=== PATIENT | male | born 1995 | race Caucasian/White ===

== ENCOUNTER 2019-09-11 22:37 | Emergency (ER) | payer BC ==
[2019-09-11 22:42] VITALS: TEMP 98.5
[2019-09-11] MEDS ORDERED: LORazepam 1 MG TAB PO STA (23:03)
--- NOTE | 2019-09-11 23:20 | ED ---
General Adult HPI - General Chief complaint: Anxiety Stated complaint: Anxiety Time Seen by Provider: 09/11/19 22:41 Source: patient, RN notes reviewed Mode of arrival: ambulatory Limitations: no limitations - History of Present Illness Initial comments: 24-year-old male presents to the emergency department for a chief complaint of anxiety. Patient states that this last November he had increased anxiety when he started a new job. States actually adequate that job and was started on a couple different anxiety medications for about one month. States that he felt better however a couple weeks ago the anxiety surgeon return. He states he started a new [employer] class this Monday but does not feel it is related. States he has had increased anxiety and had a panic attack before coming. Patient does have Valium at home but did not take it. Mother states they're here to start from "square one" With this anxiety. Patient denies any thoughts of harming himself or anyone else. States his anxiety is better at this time he still does feel somewhat anxious.Patient has no other complaints at this time including shortness of breath, chest pain, abdominal pain, nausea or vomiting, headache, or visual changes. - Related Data Allergies Allergy/AdvReac Type Severity Reaction Status Date / Time Penicillins Allergy Unknown Verified 09/11/19 22:41 Review of Systems ROS Statement: Those systems with pertinent positive or pertinent negative responses have been documented in the HPI. ROS Other: All systems not noted in ROS Statement are negative. Past Medical History Past Medical History: No Reported History History of Any Multi-Drug Resistant Organisms: None Reported Past Surgical History: No Surgical Hx Reported Past Psychological History: Anxiety Smoking Status: Never smoker Past Alcohol Use History: None Reported Past Drug Use History: None Reported General Exam Limitations: no limitations General appearance: alert, in no apparent distress, anxious (Fidgeting) Head exam: Present: atraumatic, normocephalic, normal inspection Eye exam: Present: normal appearance, PERRL, EOMI. Absent: scleral icterus, conjunctival injection, periorbital swelling ENT exam: Present: normal exam, mucous membranes moist Neck exam: Present: normal inspection, full ROM. Absent: tenderness, meningismus, lymphadenopathy Respiratory exam: Present: normal lung sounds bilaterally. Absent: respiratory distress, wheezes, rales, rhonchi, stridor Cardiovascular Exam: Present: regular rate, normal rhythm, normal heart sounds. Absent: systolic murmur, diastolic murmur, rubs, gallop, clicks Neurological exam: Present: alert, oriented X3, CN II-XII intact Psychiatric exam: Present: anxious (mildly anxious). Absent: homicidal ideation, suicidal ideation Course Vital Signs 09/11/19 22:39 Temperature 98.5 F Pulse Rate 99 Respiratory 16 Rate Blood Pressure 168/100 O2 Sat by Pulse 96 Oximetry Medical Decision Making - Medical Decision Making Patient was given Ativan here in the emergency department which did help somewhat. Patient is noted to have Valium at home that he has not been taking. Discussed that if he sits have another panic attack he can take a Valium to help. Discussed not driving while taking this. Patient denies any thoughts of harming himself or anyone else. Patient was given mental health follow-up including mobile crisis number. At this and he will follow-up with his primary care provider as well as situs to manage his anxiety in the past. He will return if he has any worsening symptoms. Disposition Clinical Impression: Acute anxiety Disposition: HOME SELF-CARE Condition: Good Instructions (If sedation given, give patient instructions): Generalized Anxiety Disorder (ED) Additional Instructions: Please follow up with your primary care provider tomorrow. Follow-up with referral list given as well. You may take a Valium if you start to feel another panic attack coming on. Otherwise return to the emergency department for any worsening symptoms. Is patient prescribed a controlled substance at d/c from ED?: No Referrals: Maia Peters MD [Primary Care Provider] - 1-2 days Time of Disposition: 23:21
[2019-09-12 00:09] VITALS: BP 148/100; PULSE 111; RESP 20
== END 2019-09-12 00:10 | disposition home or self-care (01) ==
LOC: EC 22:37
DX: F41.9 Anxiety disorder, unspecified (principal); Z88.0 Allergy status to penicillin
CPT/HCPCS: 99283

== ENCOUNTER 2025-02-13 06:27 | Emergency (ER) | payer BC, OTHER ==
--- NOTE | 2025-02-13 06:49 | ED ---
Abdominal Pain HPI - General Chief Complaint: Abdominal Pain Stated Complaint: abd pain Time Seen by Provider: 02/13/25 06:36 Source: patient, RN notes reviewed Mode of arrival: ambulatory Limitations: no limitations - History of Present Illness Initial Comments: This is a 29-year-old male with no reported medical conditions presents emergency department for complaints of abdominal pain associated nausea and diarrhea over the past 8 days. Patient states that he has had multiple episodes of nonbloody nonmucous diarrhea approximately 10 episodes per day with associated mid abdominal and epigastric pain in his abdomen that is nonradiating. Denies associated urinary complaints, vomiting, fevers, chills. He denies recent travel, trying new foods, livestock exposure, fecal oral contamination, recent antibiotics. Denies previous surgical abdominal history. Denies precipitating modifying factors. Patient states he was evaluated by his PCP few days ago and was instructed to report to the emergency department if symptoms persist or worsen. - Related Data Previous Rx's Medication Instructions Recorded Azithromycin [Zithromax] 500 mg PO DAILY #5 tab 02/13/25 Ondansetron Odt [Zofran Odt] 4 mg PO Q8HR PRN #10 tab 02/13/25 Allergies Allergy/AdvReac Type Severity Reaction Status Date / Time Penicillins Allergy Rash/Hives Verified 02/13/25 06:29 Review of Systems ROS Statement: Those systems with pertinent positive or pertinent negative responses have been documented in the HPI. ROS Other: All systems not noted in ROS Statement are negative. Past Medical History Past Medical History: No Reported History History of Any Multi-Drug Resistant Organisms: None Reported Past Surgical History: No Surgical Hx Reported Past Psychological History: Anxiety Past Alcohol Use History: None Reported Past Drug Use History: None Reported General Exam Limitations: no limitations General appearance: alert, in no apparent distress ENT exam: Present: normal exam, mucous membranes moist Respiratory exam: Present: normal lung sounds bilaterally. Absent: respiratory distress, wheezes, rales, rhonchi, stridor Cardiovascular Exam: Present: regular rate, normal rhythm, normal heart sounds. Absent: systolic murmur, diastolic murmur, rubs, gallop, clicks GI/Abdominal exam: Present: soft, tenderness (mid abdomen, epigastric), normal bowel sounds. Absent: distended, guarding, rebound, rigid Extremities exam: Present: normal inspection, full ROM, normal capillary refill. Absent: tenderness, pedal edema, joint swelling, calf tenderness Back exam: Present: normal inspection. Absent: CVA tenderness (R), CVA tenderness (L) Course Vital Signs 02/13/25 02/13/25 02/13/25 06:30 07:48 08:15 Temperature 98.1 F Pulse Rate 73 92 Respiratory 18 15 17 Rate Blood Pressure 134/85 131/78 O2 Sat by Pulse 97 98 Oximetry Medical Decision Making - Medical Decision Making Was pt. sent in by a medical professional or institution (, PA, SENIOR DOT NET DEVELOPER, urgent care, hospital, or [facility]...) When possible be specific @ -No Did you speak to anyone other than the patient for history (EMS, parent, family, police, friend...)? What history was obtained from this source @ -No Did you review nursing and triage notes (agree or disagree)? Why? @ -I reviewed and agree with nursing and triage notes Were old charts reviewed (outside hosp., previous admission, EMS record, old EKG, old radiological studies, urgent care reports/EKG's, [facility] records)? Report findings @ -No old charts were reviewed Differential Diagnosis (chest pain, altered mental status, abdominal pain women, abdominal pain men, vaginal bleeding, weakness, fever, dyspnea, syncope, headache, dizziness, GI bleed, back pain, seizure, CVA, palpatations, mental health, musculoskeletal)? @ -Differential Abdominal Pain Men: Appendicitis, cholecystitis, diverticulosis, ischemic bowel, pancreatitis, hepatitis, UTI, gastroenteritis, AAA, incarcerated hernia, bowel obstruction, constipation, inflammatory bowel, hepatitis, peptic ulcer disease, splenic infarction, perforated viscus, testicular torsion, this is not meant to be an all-inclusive list EKG interpreted by me (3pts min.). @ -none X-rays interpreted by me (1pt min.). @ -None done CT interpreted by me (1pt min.). @ -CT of the abdomen pelvis with IV contrast reveals prominence of the cecum and proximal ascending colon which may have some mild laboratory changes, appendix normal visualized, mild wall thickening of the distal sigmoid colon gallbladder reveals normal with no pericholecystic fluid inflammatory changes or obvious wall thickening U/S interpreted by me (1pt. min.). @ -Ultrasound of the gallbladder reveals a thickened gallbladder wall with no evidence of pericholecystic fluid or cholelithiasis evident, mild hepatomegaly (correlate for acute cholecystitis) What testing was considered but not performed or refused? (CT, X-rays, U/S, labs)? Why? @ -None What meds were considered but not given or refused? Why? @ -None Did you discuss the management of the patient with other professionals (professionals i.e. , PA, SENIOR DOT NET DEVELOPER, lab, RT, psych nurse, social worker masters, physical chemistry professor, teacher, traffic division commanding officer, spring encaser)? Give summary @ -No Was smoking cessation discussed for >3mins.? @ -No Was critical care preformed (if so, how long)? @ -No Were there social determinants of health that impacted care today? How? (Homelessness, low income, unemployed, alcoholism, drug addiction, transportation, low edu. Level, literacy, decrease access to med. care, custodial, rehab)? @ -No Was there de-escalation of care discussed even if they declined (Discuss DNR or withdrawal of care, Hospice)? DNR status @ -No What co-morbidities impacted this encounter? (DM, HTN, Smoking, COPD, CAD, Cancer, CVA, ARF, Chemo, Hep., AIDS, mental health diagnosis, sleep apnea, morbid obesity)? @ -None Was patient admitted / discharged? Hospital course, mention meds given and route, prescriptions, significant lab abnormalities, going to OR and other pertinent info. @ -Discharge. 29-year-old male presents emergency department with diarrhea and abdominal pain over the past days. Pain is mildly reproducible on exam the epig astric abdomen to deep palpation, no signs of rebound tenderness or rigidity. Negative Briseno sign. Patient was provided with Zofran, fluids, Toradol. Laboratory testing is unremarkable. Ultrasound imaging reveals 9 gallbladder wall thickening with no evidence of cholelithiasis or pericholecystic fluid. EGD abdomen is ordered at this time which reveals a inflammatory changes of the cecum proximal ascending colon. Patient will be treated with azithromycin for traveler's diarrhea and Zofran for nausea. Recommend following clear liquid diet over 24 hours and afterward slowly reducing foods. Recommend follow-up with primary care provider in 24 to 48 hours. Return parameters discussed. Case discussed with Dr. Nation Undiagnosed new problem with uncertain prognosis? @ -No Drug Therapy requiring intensive monitoring for toxicity (Heparin, Nitro, Insulin, Cardizem)? @ -No Were any procedures done? @ -No Diagnosis/symptom? @ -Colitis Acute, or Chronic, or Acute on Chronic? @ -Acute Uncomplicated (without systemic symptoms) or Complicated (systemic symptoms)? @ -Uncomplicated Side effects of treatment? @ -No Exacerbation, Progression, or Severe Exacerbation? @ -No Poses a threat to life or bodily function? How? (Chest pain, [place], [place], pneumonia, PE, COPD, DKA, ARF, appy, cholecystitis, CVA, Diverticulitis, Homicidal, Suicidal, threat to staff... and all critical care pts) @ -No - Lab Data Result diagrams: 02/13/25 06:50 02/13/25 06:50 Lab Results 02/13/25 02/13/25 02/13/25 Range/Units 06:50 06:50 06:50 WBC 10.86 H (4.50-10.00) 10*3/uL RBC 6.70 H (4.40-5.60) 10*6/uL Hgb 17.5 H (13.0-17.0) g/dL Hct 52.8 H (39.6-50.0) % MCV 78.8 L (80.0-97.0) fL MCH 26.1 L (27.0-32.0) pg MCHC 33.1 (32.0-37.0) g/dL Plt Count 365 (140-440) 10*3/uL MPV 9.5 (9.5-12.2) fL Immature Gran % (Auto) 0.4 % Neutrophils % 80.0 % Lymphocytes % 11.1 % Monocytes % 7.8 % Eosinophils % 0.2 % Basophils % 0.5 % Immature Gran # 0.04 (0.00-0.04) 10*3/uL Neutrophils # 8.69 H (1.80-7.70) 10*3/uL Lymphocytes # 1.21 (0.90-5.00) 10*3/uL Monocytes # 0.85 (0.20-1.00) 10*3/uL Eosinophils # 0.02 L (0.04-0.35) 10*3/uL Basophils # 0.05 (0.00-0.10) 10*3/uL Sodium 140 (137-145) mmol/L Potassium 4.2 (3.5-5.1) mmol/L Chloride 101 (98-107) mmol/L Carbon Dioxide 27 (22-30) mmol/L Anion Gap 12 mmol/L BUN 12 (9-20) mg/dL Creatinine 0.97 (0.66-1.25) mg/dL Est GFR (CKD-EPI)AfAm >90 (>60 ml/min/1.73 sqM) Est GFR (CKD-EPI)NonAf >90 (>60 ml/min/1.73 sqM) Glucose 109 H (74-99) mg/dL Plasma Lactic Acid Rudi 0.9 (0.7-2.0) mmol/L Calcium 9.8 (8.4-10.2) mg/dL Total Bilirubin 1.3 (0.2-1.3) mg/dL AST 33 (17-59) U/L ALT 48 (4-49) U/L Alkaline Phosphatase 82 (38-126) U/L Total Protein 8.1 (6.3-8.2) g/dL Albumin 5.0 (3.5-5.0) g/dL Amylase 55 (30-110) U/L Lipase 43 (23-300) U/L Disposition Clinical Impression: Colitis Disposition: HOME SELF-CARE Condition: Stable Instructions (If sedation given, give patient instructions): Colitis (ED) Additional Instructions: Please return to the Emergency Department if symptoms worsen or any other concerns. Recommend that you follow clear liquid diet over the next 24 hours and after slowly reducing foods such as bananas, rice, urea, applesauce, toast. Take Zofran as needed and complete full course antibiotics as prescribed. Recommend follow-up with your primary care provider in the next 24 to 48 hours. Prescriptions: Azithromycin [Zithromax] 500 mg PO DAILY #5 tab Ondansetron Odt [Zofran Odt] 4 mg PO Q8HR PRN #10 tab PRN Reason: Nausea Is patient prescribed a controlled substance at d/c from ED?: No Referrals: None,Stated [REFERRING] - 1-2 days Time of Disposition: 08:17
[2025-02-13] MEDS: KETOROLAC 15 MG/ML 1 ML VIAL IVP STA (06:55)
[2025-02-13] MEDS: SODIUM CHLORIDE 0.9% 1,000 ML IV SCH (06:55)
[2025-02-13] MEDS: ONDANSETRON 4 MG/2 ML VIAL IVP STA (06:55)
[2025-02-13 07:14] LABS: Basophils # (A) 0.05 10*3/uL (0.00-0.10); Basophils % (A) 0.5 %; Eosinophils # (A) 0.02 10*3/uL (0.04-0.35); Eosinophils % (A) 0.2 %; HCT 52.8 % (39.6-50.0); HGB 17.5 g/dL (13.0-17.0); Lymphocytes # (A) 1.21 10*3/uL (0.90-5.00); Lymphocytes % (A) 11.1 %; MCH 26.1 pg (27.0-32.0); MCHC 33.1 g/dL (32.0-37.0); MCV 78.8 fL (80.0-97.0); Mean Platelet Volume 9.5 fL (9.5-12.2); Monocytes # (A) 0.85 10*3/uL (0.20-1.00); Monocytes % (A) 7.8 %; Neutrophils # (A) 8.69 10*3/uL (1.80-7.70); Platelet Count 365 10*3/uL (140-440); RDW 13.3 % (11.5-14.5); WBC 10.86 10*3/uL (4.50-10.00)
--- NOTE | 2025-02-13 07:27 | US ---
EXAMINATION TYPE: US gallbladder DATE OF EXAM: 02/13/2025 COMPARISON: NONE CLINICAL INDICATION: Male, 29 years old with history of epigastric ab pain, diarrhea X8 days; Epigast tae pain with nausea, vomiting, and diarrhea x 8 days. Patient denies any other signs, symptoms, or r elevant history TECHNIQUE: Grayscale and color Doppler imaging of the right upper quadrant was performed. FINDINGS: EXAM MEASUREMENTS: Liver Length: 16.2 cm Gallbladder Wall: 0.4 cm CBD: 0.3 cm Right Kidney: 11.3 x 5.5 x 5.0 cm INSIDE ACCOUNT REPRESENTATIVE NOTES: Pancreas: Tail obscured by overlying bowel gas Liver: Increased attenuation Gallbladder: Gallbladder wall thickening is present. No pericholecystic fluid evident. No cholelithi asis present. Consider acalculous cholecystitis. Evidence for sonographic Briseno's sign: No CBD: wnl Right Kidney: wnl IMPRESSION: 1. Thickened gallbladder wall. No pericholecystic fluid or cholelithiasis evident. Correlate for acal culus cholecystitis. 2. Mild hepatomegaly [facility], , 02/13/2025 7:24 AM
[2025-02-13 07:28] LABS: ALT 48 U/L (4-49); AST 33 U/L (17-59); African American GFR (CKD) >90 (>60 ml/min/1.73 sqM); Alkaline Phosphatase 82 U/L (38-126); Amylase 55 U/L (30-110); Anion Gap 12 mmol/L; Blood Urea Nitrogen 12 mg/dL (9-20); Calcium 9.8 mg/dL (8.4-10.2); Carbon Dioxide 27 mmol/L (22-30); Chloride 101 mmol/L (98-107); Glucose 109 mg/dL (74-99); Lipase 43 U/L (23-300); Non-African American GFR(CKD) >90 (>60 ml/min/1.73 sqM); Potassium 4.2 mmol/L (3.5-5.1); Sodium 140 mmol/L (137-145); Total Bilirubin 1.3 mg/dL (0.2-1.3); Total Protein 8.1 g/dL (6.3-8.2)
--- NOTE | 2025-02-13 08:10 | CT ---
EXAMINATION TYPE: CT abdomen pelvis w con DATE OF EXAM: 02/13/2025 8:02 AM COMPARISON: None. CLINICAL INDICATION: Male, 29 years old with history of epigastric ab pain, US possible acute shobha, epigastric pain, diarrhea TECHNIQUE: Axial images were obtained from above the diaphragm to the pubic rami in the axial plane a t 5 mm thick sections. Reconstructed images are reviewed on the computer in the coronal plane. CONTRAST: 100 mL of Isovue 300. Study performed without Oral Contrast DLP: 1381.4 mGycm, Automated exposure control for dose reduction was used. FINDINGS: Limited CT sections are obtained the lung bases. The lung bases are clear. CT ABDOMEN: Liver: Normal Spleen: Normal Pancreas: Normal Adrenal glands: The adrenal glands are normal. Gallbladder: Normal. No pericholecystic fluid inflammatory changes or obvious wall thickening evident by CT. No gallstones identified. Kidneys: No masses are evident. No hydronephrosis is present. No cysts are present. Delayed images were obtained through the kidneys, which remain unremarkable. Aorta: Normal Inferior vena cava: Normal. CT PELVIS: There appears to be some thickening with some mild inflammatory change adjacent to the cecum and prox imal ascending colon. Correlate for colitis or typhlitis. Some mild wall thickening of the distal sig moid colon may be present. This could be related to incomplete distention. This study is without oral contrast limiting bowel evaluation. Appendix: Normal as visualized. Urinary bladder: Normal. Genitourinary structures: Osseous structures: No suspicious lytic or sclerotic lesions. IMPRESSION: 1. There is prominence at the cecum and proximal ascending colon which may have some mild adjacent i nflammatory changes. Correlate for colitis or typhlitis. The appendix appears normal as visualized. 2. Some mild wall thickening of the distal sigmoid colon is not excluded. [facility], , 02/13/2025 8:08 AM
[2025-02-13 08:16] VITALS: RESP 17
[2025-02-13 09:21] VITALS: BP 145/93; PULSE 70; TEMP 98.4
== END 2025-02-13 09:21 | disposition home or self-care (01) ==
LOC: EC 06:27
DX: K52.9 Noninfective gastroenteritis and colitis, unspecified (principal); Z88.0 Allergy status to penicillin
CPT/HCPCS: 36415; 80053; 82150; 83605; 83690; 85025; 76705; 74177; 99284; 96374; 96375; 96361 ×2; J2405; J1885; Q9967